=== PATIENT | female | born 1960 | race African-American/Black ===

== ENCOUNTER 2016-10-03 08:37 | Emergency (ER) | payer OTHER ==
[2016-10-03 08:51] VITALS: BP 107/75
--- NOTE | 2016-10-03 10:04 | UC ---
Cristi Shabazz Matthew, [facility] on 10/03/16 at 1000 . Hand/Wrist HPI - HPI Summary HPI Summary: Nurse's Note; R thumb swelling, painful along nailbed for a couple of weeks. Note; Vital signs stable, 7/10 pain, non-smoker, previous visit are non- contributory to current visit, allergic to sulfa drugs. In Room Note; A 56 y/o female presents to [facility] with right thumb swelling and pain since a couple of weeks ago. The pain is rated 7/10 in severity. She denies drainage from the site. The patient had similar symptoms on her toe as a child. She is right handed. The patient takes the pain medication every 4 hours for lower back pain. PMHx includes spinal stenosis and she taking Percocet, gabapentin, prozac, baclofen, ibuprofen. The patient is scheduled for surgery. - History Of Current Complaint Chief Complaint: UC Stated Complaint: SWOLLEN PAINFUL FINGER Time Seen by Provider: 10/03/16 09:35 Hx Obtained From: Patient ?: No Onset/Duration: Lasting Weeks, Still Present Severity Initially: Moderate Severity Currently: Moderate Pain Intensity: 7 Pain Scale Used: 0-10 Numeric Aggravating Factor(s): Other - Touch Alleviating: Nothing Associated Signs And Symptoms: Positive: Swelling - right thumb - Allergies/Home Medications Allergies/Adverse Reactions: Allergies Allergy/AdvReac Type Severity Reaction Status Date / Time Sulfa Antibiotics Allergy Rash Verified 10/03/16 08:43 Home Medications: Home Medications FLUoxetine CAP* [PROzac CAP*] 10 mg PO DAILY 10/03/16 [History Confirmed ] PMH/Surg Hx/FS Hx/Imm Hx Endocrine History Of: Denies: Diabetes Cardiovascular History Of: Denies: Hypertension, Pacemaker/ICD GI/ History Of: Reports: Kidney Stones - PASSED STONES 10/08 Denies: Renal Disease Cancer History Of: Denies: Breast Cancer - Surgical History Surgical History: Yes Surgery Procedure, Year, and Place: 2003 BREAST AUGMENTATION. 1992 CSECTION AND TUBAL LIGATION. GALLBLADDER REMOVED 2013 - Family History Known Family History: Positive: Hypertension, Diabetes - Social History Alcohol Use: Occasionally Alcohol Amount: 1/MONTH Substance Use Type: None Substance Use Comment - Amount & Last Used: occasionally Smoking Status (MU): Former Smoker Type: Cigarettes Amount Used/How Often: PACK/DAY Have You Smoked in the Last Year: No When Did the Patient Quit Smoking/Using Tobacco: 11/05 - Immunization History Most Recent Influenza Vaccination: fall 2015 Review of Systems Constitutional: Negative Skin: Negative Eyes: Negative ENT: Negative Respiratory: Negative Cardiovascular: Negative Gastrointestinal: Negative Genitourinary: Negative Motor: Negative Neurovascular: Negative Musculoskeletal: Edema - right thumb swelling, Myalgia - right thumb pain; lower back pain Neurological: Negative Psychological: Negative All Other Systems Reviewed And Are Negative: Yes Physical Exam Triage Information Reviewed: Yes Appearance: Well-Appearing, No Pain Distress, Well-Nourished Vital Signs: Initial Vital Signs Temp 96.6 F 10/03/16 08:46 Pulse 65 10/03/16 08:46 Resp 16 10/03/16 08:46 BP 107/75 10/03/16 08:46 Pulse Ox 98 10/03/16 08:46 Vital Signs Reviewed: Yes ENT: Positive: Hearing grossly normal. Negative: Pharyngeal erythema, Tonsillar swelling, Muffled/hoarse voice Neck: Positive: Supple, No Lymphadenopathy Respiratory: Positive: Chest non-tender, Lungs clear, Normal breath sounds, No respiratory distress Cardiovascular: Positive: RRR, No Murmur Abdomen Description: Positive: Nontender, No Organomegaly, Soft Bowel Sounds: Positive: Present Musculoskeletal: Positive: Strength Intact Neurological: Positive: Alert Psychological: Positive: Age Appropriate Behavior Skin: Positive: Other Hand/Wrist Course/Dx - Differential Dx/Diagnosis Differential Diagnosis/HQI/PQRI: Other - paronychia vs. local cellulitis Provider Diagnoses: Localized Cellulitis of the ulnar margin of the right thumb Discharge - Discharge Plan Condition: Stable Disposition: HOME Prescriptions: Cephalexin CAP* [Keflex 500 CAP*] 500 mg PO TID #21 cap MDD 3 Fluconazole [Diflucan 150 MG (NF)] 150 mg PO ONCE #1 tab MDD 1 Patient Education Materials: Cellulitis (ED) Referrals: Patrice Bauer MD [Primary Care Provider] - Additional Instructions: WE DISCUSSED: You have a small skin infection on one side of your right thumb. There was no pus to be released. Watch for swelling, pain, pus pocket, red lines. Start Keflex, 3 times a day for 7 day. Use antibiotic ointment after soaks along nail margin. Hot salt water soaks for 10 minutes 6 to 8 times a day. Recheck for any increased pain, pus, temperature, swelling. The documentation as recorded by the geoibCristi croft Matthew accurately reflects the service I personally performed and the decisions made by , Prosper Jefferson MD.
== END 2016-10-03 10:06 | disposition home or self-care (01) ==
LOC: UCEAST 08:37
DX: L03.011 Cellulitis of right finger (principal); Z88.2 Allergy status to sulfonamides; Z90.49 Acquired absence of other specified parts of digestive tract; Z87.891 Personal history of nicotine dependence
CPT/HCPCS: 99212; G0463

== ENCOUNTER 2018-05-19 16:17 | Emergency (ER) | payer OTHER ==
--- OUTSIDE RECORDS SUMMARY | 2018-05-19 16:21 | XMS REPORT ---
:1960 External Reference #:[id number] Author Organization [facility] Address [address] [place] [address] Phone [phone] Care Team Providers Name Role Phone Patrice Bauer Care Team Information Assistant Brand Manager Unavailable Patrice Bauer Primary Care Physician Unavailable Payers Type Date Identification Numbers Payment Provider Subscriber Medicaid Effective: 2013 Policy Number: [id number] [facility] Lorena Cisneroser PayID: [id number] [address] [address] [place] [address] Medicaid Expires: 2016 Policy Number: YES Medicaid [place] Lorena Mckoy PayID: [id number] [address] [facility] [place] [address] Problems Date Description Provider Status Onset: 04/17/2012 Type 2 diabetes mellitus Patrice Bauer M.D. Active Onset: 04/17/2012 Hyperlipidemia Patrice Bauer M.D. Active Onset: 04/17/2012 Low back pain Patrice Bauer M.D. Active Onset: 07/28/2012 Acute upper respiratory infection Patrice Bauer M.D. Active Onset: 10/07/2012 Disorder of skin AND/OR subcutaneous Byrdfrancisca Brown M.D. Active tissue Onset: 10/13/2012 Acute sinusitis Patrice Bauer M.D. Active Onset: 10/13/2012 Allergic urticaria Patrice Bauer M.D. Active Onset: 10/13/2012 Seborrheic dermatitis Patrice Bauer M.D. Active Onset: 12/15/2012 Anxiety state Patrice Bauer M.D. Active Onset: 02/01/2014 Arthralgia of the lower leg Patrice Bauer M.D. Active Onset: 06/27/2014 Onychomycosis Patrice Bauer M.D. Active Onset: 10/25/2014 Eruption Patrice Bauer M.D. Active Onset: 07/03/2015 Lumbar radiculopathy Patrice Bauer M.D. Active Onset: 03/26/2016 Pain in thoracic spine Patrice Bauer M.D. Active Onset: 03/26/2016 Arthralgia of the upper arm Patrice Bauer M.D. Active Onset: 06/03/2016 Female climacteric state Patrice Bauer M.D. Active Onset: 09/23/2016 Spinal stenosis of lumbar region Patrice Bauer M.D. Active Onset: 10/28/2016 Dysthymic disorder Patrice Bauer M.D. Active Onset: 11/29/2016 Chest pain Patrice Bauer M.D. Active Family History Date Family Member(s) Problem(s) Comments Father due to Homicide () Mother due to drug addict () Children 2 First Son Unremarkable First Daughter Unremarkable Siblings None Social History Type Date Description Comments Marital Status single Lives With Daughter Diet Healthy, Well Balanced ETOH Use Occasionally consumes alcohol Smoking Patient is a former smoker Daily Caffeine Some Caffeine Exercise Type/Frequency Exercises sporadically Seat Belt/Car Seat Always uses seat belt Allergies, Adverse Reactions, Alerts Date Description Reaction Status Severity Comments 10/08/2012 Sulfa active 04/17/2012 NKDA inactive 07/28/2012 Chantix inactive Depressed Medications Medication Date Status Form Strength Qnty SIG Indications Ordering Provider Note Due To needs to Patrice Giron Health Issues 2018 have a 2 [place], bedroom M.D. apartment to accomodate equipment to exercise her back. Diagnosis-c hronic low back pain Work Able to Patrice Giron Recommendation 2017 work up to [place], 20 hours M.D. per week at a sedentary job Gabapentin Capsules 300mg 120cap take 1 bid M54.16 Patrice Fisher s And 1-2 [place], caps at M.D. bedtime for pain Fluoxetine HCL 10/03/ Active Capsules 20mg 30caps 1 by mouth F41.1 Patrice Giron 2016 every day [place], for anxiety M.D. Baclofen 02/15/ Active Tablets 20mg 45tabs take one Patrice Giron 2015 tablet by [place], mouth four M.D. times a day as needed for muscle spasms Ibuprofen 06/09/ Active Tablets 800mg 60tabs 1 by mouth J06.9 Patrice Giron 2014 every 12h [place], as needed M.D. with food Multivitamins 12/15/ Active Capsules 30caps 1 by mouth Patrice Giron 2012 every day [place], M.D. Endocet 04/17/ Active Tablets 10-325mg 120tab 1 by mouth M54.5 Patrice Giron 2011 s four times [place], a day as M.D. needed M54.16 Cheratussin ac 08/14 Hx Syrup 100-10 120m 5-10 ml every 4 J06. Patrice Russ mg/5ML l hours as needed 9 [place], - M.D. 09/26 Diazepam 11/29 Hx Tablets 2mg 30ta 1-2 twice a day F41. Patrice bs as needed for 1 [place], - anxiety M.D. 12/30 Betamethasone Valerate 10/28 Hx Cream 0.1% 15gm apply twice a R21 Patrice Giron day to three [place], - times a day to M.D. 03/102017 Work Excuse 10/28 Hx unable to work M54. Patrice until rechecked 5 [place], - in 4 weeks. M.D. 03/04 Cheratussin ac 09/26 Hx Syrup 100-10 120m 1-2 teaspoon J06. Patrice Russ mg/5ML l every 4 hours as 9 [place], - needed M.D. 11/29 Gabapentin 09/23 Hx Capsules 100mg 90ca take one to M54. Patrice Giron ps three capsules 16 [place], - by mouth at M.D. 10/03 bedtime for pain /2016 Estroven Nighttime 06/03 Hx Capsules 3mg Patrice Russ [place], - M.D. 03/10 Work Excuse 06/03 Hx unable to work M54. Patrice until rechecked 5 [place], - in 4 weeks. M.D. 08/22 Fluoxetine HCL 06/03 Hx Capsules 10mg 60ca take 1-2 cap by F41. ps mouth every day 1 [place], - For Anxiety M.D. 10/03 Methylprednisolone 04/09 Hx TBPK 4mg 1Pac as directed M25. Patrice k 522 [place], - M.D. 06/03 Physical Therapy 03/26 Hx treatment and M54. evaluation low 5 [place], - back pain M.D. 05/25 Work Excuse 01/11 Hx unable to work Patrice 01/10-01/11 due to [place], - back pain M.D. 02/15 Baclofen 01/10 Hx Tablets 20mg 45ta take one tablet bs by mouth four [place], - times a day as M.D. 02/15 needed for muscle spasms Note 01/08 Hx pt was seen here today , advised Anais, - no work through Afnp-C 01/1001/10/16 Ciclopirox 07/13 Hx Solution 8% 6.6u Apply Daily To nits Affected Nails [place], - M.D. 11/23 Note Due To Health 06/14 Hx Lorena may return to work today Luis, - COMPUTER CONSULTANT 07/03 Cheratussin ac 06/09 Hx Syrup 100-10 120m 1-2 teaspoon J. mg/5ML l every 4 hours as 9 Luis, - needed COMPUTER CONSULTANT 07/03 Azithromycin 06/09 Hx Tablets 250mg 6tab 2 by mouth qd x J06. s 3d then 1 po qd 9 Luis, - x 6d COMPUTER CONSULTANT 07/03 Terbinafine HCL 12/27 Hx Tablets 250mg 20ta 1 by mouth every 782. Patrice Russ bs day For Rash 1 [place], - M.D. 11/23 Triamcinolone Acetonide 12/27 Hx Cream 0.1% 45un apply to 782. Patrice T its affected skin 1 [place], - twice a day M.D. 11/23 Ketoconazole 10/25 Hx Tablets 200mg 14ta 1 PO qd For Rash 782. Patrice T bs 1 [place], - M.D. 12/27 Ketoconazole 10/25 Hx Cream 2% 30gm apply to rash 782. Patrice T every day to 1 [place], - twice a day M.D. 12/27 Azithromycin 08/12 Hx Tablets 250mg 6tab 2 by mouth today 466. Patrice Giron s and 1 by mouth x 0 [place], - 4 days M.D. 10/25 Cheratussin ac 08/12 Hx Syrup 100-10 120m 1-2 teaspoon 466. Patrice Russ mg/5ML l every 4 hours as 0 [place], - needed M.D. 12/27 Work Note 08/12 Hx no work today Patrice Giron and tomorrow due [place], - to illness M.D. 10/25 Chantix 07/25 Hx Tablets 1mg 60ta 1 by mouth twice Patrice bs a day [place], - M.D. 06/09 Chantix Starting Month 06/27 Hx Tablets 0.5mg 53ta take as directed Patrice Giron X 11 & bs [place], - 1 mg X M.D. 07/25 Ciclopirox 06/27 Hx Solution 8% 1Bot apply daily to 110. Patrice Giron tle affected nails 1 [place], - M.D. 10/25 Meloxicam 02/01 Hx Tablets 7.5mg 30ta 1 po qd for pain Patrice Giron bs prn take with [place], - food. M.D. 07/03 Physical Therapy 10/25 Hx treatment and 724. Patrice Giron evaluation low 2 [place], - back pain M.D. 02/01 Azithromycin 08/05 Hx Tablets 250mg 6tab 2 po today and 1 461. Patrice T. s po x 4 days 8 [place], - M.D. 10/25 Betamethasone 03/29 Hx Cream 0.05% 15gm apply sparingly Patrice T. Dipropionate bid-tid to rash [place], - prn M.D. 10/25 Multivitamins 12/15 Hx Tablets 30ta 1 by mouth every Patrice T. /2012 bs day [place], - M.D. 08/12 A[place]ton-Smoothe/FS Scalp 10/13 Hx Oil 0.01% 1Bot Apply qd prn To Patrice T. Oil tle Scalp [place], - M.D. 06/20 Azithromycin 10/13 Hx Tablets 250mg 6tab 2 po today and 1 461. Patrice T. s po x [address] [facility] [place], - M.D. 12/15 Prednisone 10/07 Hx Tablets 20mg 20ta 3 tabs x 3 days, 709. Carson Cox. bs then 2 tabs x 3 9 Alba Brown - days then 1 tab 12/15 x 3 days 1/2 tab for three days Azithromycin 07/28 Hx Tablets 250mg 6tab 2 po today and 1 465. Patrice T. s po x [address] days [address] [facility], - M.DShoaib 10/07 Fluconazole 07/28 Hx Tablets 150mg 2tab 1 po for yeast 465. Patrice T. s infection. december [address] [facility], - repeat in 5-7 M.D. Medrol Dosepak 07/28 Hx Tablets 4mg 1tab as directed for 724. Patrice T. s low back 2 [place], - M.D. 07/28 Chantix Starter Pack 07/01 Hx 1PK take as directed Anais, - Afnp-C 07/28 Physical Therapy 07/01 Hx please evaluate and treat for Anais, - chronic back Afnp-C 12/15 pain exacerbation Cyclobenzaprine HCL 04/17 Hx Tablets 10mg 30ta 1 by mouth three bs times a day as Anais, - needed Afnp-C 03/26 Simvastatin 04/17 Hx Tablets 10mg 30ta 1 po qhs Patrice Shoaib Davin Wisdom M.D. 10/25 Metformin HCL ER 04/17 Hx Tablets ER 500mg 30ta one tab po qd Patrice Shoaib 24HR Davin Wisdom M.D. 03/29 Chantix 04/17 Hx Tablets 1mg 1 po bid Davin Manzo 07/28 Vitamin D Hx Capsules 1000Un 1 po qd Unknown /0000 it - 02/01 Medications Administered in Office Medication Date Status Form Strength Qnty SIG Indications Ordering Provider TB Intradermal Administered Injection Patrice T. Test 016 Alba Bauer TB Intradermal Administered Injection Merle Test 014 Shamir, NINI Immunizations CPT Code Status Date Vaccine Lot # [id number] Given 06/14/2017 Influenza Vac, Quadrivalent, Slit Virus, Im [id number] 60546 Given 07/06/2016 Influenza Vac, Quadrivalent, Slit Virus, Im [id number] Given 07/03/2015 Influenza Vac, Quadrivalent, Slit Virus, Im [id number] Given 05/30/2014 Tdap Tetanus, W Pertussis [id number] Given 05/30/2014 DO Not Use Split Influenza Virus Vaccine [id number] Vital Signs Date Vital Result Comment 04/25/2018 BP Systolic 118 mmHg BP Diastolic 70 mmHg Heart Rate 64 /min Body Temperature 97.8 F Respiratory Rate 16 /min Height 61.5 inches 5'1.50" measured 07/23/16 Weight 192.00 lb BMI (Body Mass Index) 35.7 kg/m2 12/30/2017 BP Systolic 112 mmHg BP Diastolic 68 mmHg Heart Rate 68 /min Body Temperature 97.7 F Respiratory Rate 16 /min Height 61.5 inches 5'1.50" measured 07/23/16 Weight 194.50 lb BMI (Body Mass Index) 36.2 kg/m2 09/26/2017 BP Systolic 104 mmHg BP Diastolic 60 mmHg Heart Rate 84 /min Body Temperature 98.2 F Respiratory Rate 16 /min Height 61.5 inches 5'1.50" measured 07/23/16 Weight 195.00 lb BMI (Body Mass Index) 36.2 kg/m2 07/25/2017 BP Systolic 116 mmHg BP Diastolic 66 mmHg Heart Rate 72 /min Body Temperature 97.3 F Respiratory Rate 16 /min Height 61.5 inches 5'1.50" measured 07/23/16 Weight 189.25 lb BMI (Body Mass Index) 35.2 kg/m2 03/10/2017 BP Systolic 112 mmHg BP Diastolic 74 mmHg Heart Rate 68 /min Body Temperature 98.3 F Respiratory Rate 16 /min Height 61.5 inches 5'1.50" measured 07/23/16 Weight 190.25 lb BMI (Body Mass Index) 35.4 kg/m2 02/03/2017 BP Systolic 110 mmHg BP Diastolic 70 mmHg Heart Rate 68 /min Body Temperature 98.0 F Respiratory Rate 18 /min Height 61.5 inches 5'1.50" measured 07/23/16 Weight 184.00 lb BMI (Body Mass Index) 34.2 kg/m2 01/07/2017 BP Systolic 108 mmHg BP Diastolic 64 mmHg Heart Rate 72 /min Body Temperature 97.3 F Respiratory Rate 16 /min Height 61.5 inches 5'1.50" measured 07/23/16 Weight 185.38 lb BMI (Body Mass Index) 34.5 kg/m2 11/29/2016 BP Systolic 100 mmHg BP Diastolic 60 mmHg Heart Rate 78 /min Body Temperature 97.5 F Respiratory Rate 16 /min Height 61.5 inches 5'1.50" measured 07/23/16 Weight 192.25 lb BMI (Body Mass Index) 35.7 kg/m2 10/28/2016 BP Systolic 110 mmHg BP Diastolic 60 mmHg Heart Rate 78 /min Body Temperature 98.4 F Respiratory Rate 16 /min Height 61.5 inches 5'1.50" measured 07/23/16 Weight 190.00 lb BMI (Body Mass Index) 35.3 kg/m2 10/03/2016 BP Systolic 116 mmHg BP Diastolic 68 mmHg Heart Rate 78 /min Body Temperature 97.3 F Respiratory Rate 16 /min Height 61.5 inches 5'1.50" measured 07/23/16 Weight 194.12 lb BMI (Body Mass Index) 36.1 kg/m2 09/23/2016 BP Systolic 112 mmHg BP Diastolic 68 mmHg Heart Rate 84 /min Body Temperature 97.8 F Height 61.5 inches 5'1.50" measured 11/29/16 Weight 190.25 lb BMI (Body Mass Index) 35.4 kg/m2 08/22/2016 BP Systolic 118 mmHg BP Diastolic 60 mmHg Heart Rate 60 /min Body Temperature 97.5 F Respiratory Rate 16 /min Height 61.5 inches 5'1.50" measured 07/23/16 Weight 195.00 lb BMI (Body Mass Index) 36.2 kg/m2 07/23/2016 BP Systolic 100 mmHg BP Diastolic 60 mmHg Heart Rate 84 /min Body Temperature 97.7 F Respiratory Rate 16 /min Height 61.5 inches 5'1.50" measured 07/23/16 Weight 191.25 lb BMI (Body Mass Index) 35.5 kg/m2 06/20/2016 BP Systolic 120 mmHg BP Diastolic 70 mmHg Heart Rate 68 /min Body Temperature 97.4 F Respiratory Rate 18 /min Height 62 inches 5'2" measured 03/26/16 Weight 189.38 lb BMI (Body Mass Index) 34.6 kg/m2 06/03/2016 BP Systolic 100 mmHg BP Diastolic 64 mmHg Heart Rate 84 /min Body Temperature 99.1 F Respiratory Rate 16 /min Height 62 inches 5'2" measured 03/26/16 Weight 190.00 lb BMI (Body Mass Index) 34.7 kg/m2 04/09/2016 BP Systolic 100 mmHg BP Diastolic 60 mmHg Heart Rate 72 /min Body Temperature 97.9 F Respiratory Rate 16 /min Height 62 inches 5'2" measured 03/26/16 Weight 184.12 lb BMI (Body Mass Index) 33.7 kg/m2 03/26/2016 BP Systolic 110 mmHg BP Diastolic 60 mmHg Heart Rate 84 /min Body Temperature 99.0 F Respiratory Rate 16 /min Height 62 inches 5'2" measured 03/26/16 Weight 184.12 lb BMI (Body Mass Index) 33.7 kg/m2 02/16/2016 BP Systolic 118 mmHg BP Diastolic 60 mmHg Heart Rate 68 /min Body Temperature 98.0 F Respiratory Rate 16 /min Height 62.5 inches 5'2.50" Weight 184.50 lb BMI (Body Mass Index) 33.2 kg/m2 01/09/2016 BP Systolic 120 mmHg BP Diastolic 60 mmHg Heart Rate 76 /min Body Temperature 98.4 F Respiratory Rate 16 /min Height 62.5 inches 5'2.50" Weight 190.00 lb BMI (Body Mass Index) 34.2 kg/m2 11/24/2015 BP Systolic 114 mmHg BP Diastolic 60 mmHg Heart Rate 72 /min Body Temperature 97.7 F Respiratory Rate 16 /min Height 62.5 inches 5'2.50" Weight 197.50 lb BMI (Body Mass Index) 35.5 kg/m2 07/03/2015 BP Systolic 120 mmHg BP Diastolic 70 mmHg Heart Rate 64 /min Body Temperature 97.0 F Respiratory Rate 16 /min Weight 200.00 lb 06/09/2015 BP Systolic 126 mmHg BP Diastolic 80 mmHg Heart Rate 62 /min Body Temperature 97.9 F Weight 200.00 lb 12/27/2014 BP Systolic 100 mmHg BP Diastolic 60 mmHg Heart Rate 84 /min Body Temperature 98.4 F Respiratory Rate 16 /min Weight 189.50 lb 10/25/2014 BP Systolic 118 mmHg BP Diastolic 70 mmHg Heart Rate 100 /min Respiratory Rate 18 /min Height 62.5 inches 5'2.50" Weight 191.25 lb BMI (Body Mass Index) 34.4 kg/m2 08/12/2014 BP Systolic 124 mmHg BP Diastolic 60 mmHg Heart Rate 102 /min Body Temperature 97.3 F Respiratory Rate 16 /min Height 62.5 inches 5'2.50" Weight 185.50 lb BMI (Body Mass Index) 33.4 kg/m2 06/27/2014 BP Systolic 100 mmHg BP Diastolic 60 mmHg Heart Rate 80 /min Body Temperature 98.2 F Respiratory Rate 16 /min Height 62.5 inches 5'2.50" measured Weight 188.00 lb BMI (Body Mass Index) 33.8 kg/m2 05/30/2014 BP Systolic 120 mmHg BP Diastolic 70 mmHg Heart Rate 80 /min Body Temperature 98.6 F Respiratory Rate 18 /min Height 62.5 inches 5'2.50" measured Weight 188.00 lb BMI (Body Mass Index) 33.8 kg/m2 02/01/2014 BP Systolic 102 mmHg BP Diastolic 60 mmHg Heart Rate 68 /min Body Temperature 97.8 F Respiratory Rate 16 /min Height 62.5 inches 5'2.50" measured Weight 189.00 lb BMI (Body Mass Index) 34.0 kg/m2 10/25/2013 BP Systolic 98 mmHg BP Diastolic 62 mmHg Heart Rate 92 /min Body Temperature 95.9 F Respiratory Rate 16 /min Height 62.5 inches 5'2.50" measured Weight 191.00 lb BMI (Body Mass Index) 34.4 kg/m2 03/29/2013 BP Systolic 100 mmHg BP Diastolic 68 mmHg Heart Rate 112 /min Body Temperature 98.6 F Height 62.5 inches 5'2.50" measured Weight 188.00 lb BMI (Body Mass Index) 33.8 kg/m2 12/15/2012 BP Systolic 104 mmHg BP Diastolic 60 mmHg Heart Rate 84 /min Body Temperature 97.9 F Respiratory Rate 18 /min Height 62.5 inches 5'2.50" measured Weight 183.50 lb BMI (Body Mass Index) 33.0 kg/m2 10/13/2012 BP Systolic 110 mmHg BP Diastolic 70 mmHg Heart Rate 76 /min Body Temperature 97.9 F Respiratory Rate 18 /min Height 62.5 inches 5'2.50" measured Weight 186.00 lb BMI (Body Mass Index) 33.5 kg/m2 10/08/2012 BP Systolic 118 mmHg BP Diastolic 70 mmHg Heart Rate 72 /min Body Temperature 98.0 F Respiratory Rate 18 /min O2 % BldC Oximetry 98 % Height 62.5 inches 5'2.50" measured Weight 186.00 lb BMI (Body Mass Index) 33.5 kg/m2 10/07/2012 BP Systolic 120 mmHg BP Diastolic 80 mmHg Heart Rate 82 /min Body Temperature 97.1 F O2 % BldC Oximetry 98 % Height 62.5 inches 5'2.50" measured Weight 184.00 lb BMI (Body Mass Index) 33.1 kg/m2 07/28/2012 BP Systolic 116 mmHg BP Diastolic 70 mmHg Heart Rate 90 /min Body Temperature 98.5 F Height 62.5 inches 5'2.50" measured Weight 184.00 lb BMI (Body Mass Index) 33.1 kg/m2 07/01/2012 BP Systolic 116 mmHg BP Diastolic 76 mmHg Heart Rate 90 /min Body Temperature 98.3 F Height 62.5 inches 5'2.50" measured Weight 186.00 lb BMI (Body Mass Index) 33.5 kg/m2 04/17/2012 BP Systolic 112 mmHg BP Diastolic 66 mmHg Heart Rate 72 /min Body Temperature 97.6 F Height 62.5 inches 5'2.50" measured Weight 184.00 lb BMI (Body Mass Index) 33.1 kg/m2 Results Test Date Test Result H/L Range Note Laboratory test 01/01/2018 Cytology SEE RESULT BELOW 1 finding Lipid Panel 03/26/2016 Cholesterol, Total 199 mg/dL 100-199 2 Triglycerides 158 mg/dL High 0-149 2 HDL Cholesterol 48 mg/dL >39 2, 3 VLDL Cholesterol Laith 32 mg/dL 5-40 2 LDL Cholesterol Calc 119 mg/dL High 0-99 2 Comment: TNP 2 Ua - Non Micro (a) 03/26/2016 Appearance clear Color yellow Glucose, Urine (a/CMC/CTX) neg Bilirubin neg Ketones neg SP Grav 1.025 Blood neg PH 5.5 Protein neg Urobil 0.2 Nitrite neg Leukocytes (a/[facility]) neg Laboratory test finding 03/26/2016 Hemoglobin A1c (a) 5.7 % 4.1-5.7 Sedimentation Rate 18mm CBC Electronic (a) 03/26/2016 WBC 8.3 3.6-9.6 RBC 4.76 3.90-5.70 Hemoglobin (a/CMC/CTX) 13.3 g/dL 12.1 - 17.2 Hematocrit (a/CMC/CTX) 40.5 % 36.1 - 50.3 Platelets 203 10^3/ul 150-400 Lymph% 31.7 % 17.0-48.0 Mixed% 4.7 Neutrophils % 63.6 Mean Corpuscular Vol 85 82.2-97.4 Mean Corpuscular Hemoglobin 27.8 27.6-33.3 Mean Corpuscular Hemo Concen 32.7 32.0-36.0 RDW 13.3 11.6-13.7 Mean Platelet Volume 7.7 5.5-11.0 Laboratory test finding 03/26/2016 C-Reactive Protein, Quant 1.4 mg/L 0.0 -4.9 2 Lyme, Western Blot, Serum 03/26/2016 IgG P93 Ab. Absent 2 IgG P66 Ab. Absent 2 IgG P58 Ab. Absent 2 IgG P45 Ab. Absent 2 IgG P41 Ab. Absent 2 IgG P39 Ab. Absent 2 IgG P30 Ab. Absent 2 IgG P28 Ab. Absent 2 IgG P23 Ab. Absent 2 IgG P18 Ab. Absent 2 Lyme IgG WB Interp. Negative 2, 4 IgM P41 Ab. Absent 2 IgM P39 Ab. Absent 2 IgM P23 Ab. Absent 2 Lyme IgM WB Interp. Negative 2, 5 Metabolic Panel (14), Comprehensive 03/26/2016 Glucose, Serum 97 mg/dL 65 -99 2 BUN 10 mg/dL 6-24 2 Creatinine, Serum 0.71 mg/dL 0.57-1.00 2 eGFR If NonAfricn Am 98 mL/min/1.73 >59 2 eGFR If Africn Am 112 mL/min/1.73 >59 2 BUN/Creatinine Ratio 14 9-23 2 Sodium, Serum 141 mmol/L 134-144 2 Potassium, Serum 4.4 mmol/L 3.5-5.2 2 Chloride, Serum 104 mmol/L 97-108 2 Carbon Dioxide, Total 23 mmol/L 18-29 2 Calcium, Serum 9.3 mg/dL 8.7-10.2 2 Protein, Total, Serum 7.0 g/dL 6.0-8.5 2 Albumin, Serum 4.1 g/dL 3.5-5.5 2 Globulin, Total 2.9 g/dL 1.5-4.5 2 A/G Ratio 1.4 1.1-2.5 2 Bilirubin, Total <0.2 mg/dL 0.0-1.2 2 Alkaline Phosphatase, S 83 IU/L 39-117 2 Ast (Sgot) 18 IU/L 0-40 2 Alt (SGPT) 17 IU/L 0-32 2 Comprehensive Metabolic Prof 12/12/2015 Sodium 141 mEq/L 134-149 Potassium 4.4 mEq/L 3.6-5.5 Chloride 103 mEq/L 94-112 Carbon Dioxide 26 mEq/L 21-32 Glucose 99 mg/dL 70-105 BUN 11 mg/dL 6-26 Creatinine 0.8 mg/dL 0.6-1.4 BUN/Creat Ratio 13.8 CALC 8.0-36.0 Calcium 9.1 mg/dL 8.6-10.2 Total Protein 7.0 g/dL 6.4-8.3 Albumin 4.2 g/dL 3.8-5.5 Globulin 2.8 g/dL 2.0-4.8 A/G Ratio 1.5 CALC 0.6-2.3 Alk. Phosphatase 72 U/L 30-110 Alt (SGPT) 18 U/L 7-35 Ast (Sgot) 21 U/L 5-34 Total Bilirubin 0.3 mg/dL 0.2-1.3 GFR Non- >60 ml/min/1.73m^ >=60 GFR >60 ml/min/1.73m^ >=60 Laboratory test finding 12/12/2015 Hemoglobin A1c 5.5 % 4.1-5.7 (Fma/CMC,CX) Comprehensive Metabolic 06/27/2014 Sodium 137 mEq/L 134-149 Prof Potassium 3.8 mEq/L 3.6-5.5 Chloride 103 mEq/L 94-112 Carbon Dioxide 23 mEq/L 21-32 Glucose 138 mg/dL High 70-105 6 BUN 12 mg/dL 6-26 Creatinine 0.7 mg/dL 0.6-1.4 BUN/Creat Ratio 17.1 CALC 8.0-36.0 Calcium 9.3 mg/dL 8.6-10.2 Total Protein 7.3 g/dL 6.4-8.3 Albumin 4.3 g/dL 3.8-5.5 Globulin 3.0 g/dL 2.0-4.8 A/G Ratio 1.4 CALC 0.6-2.3 Alk. Phosphatase 78 U/L 30-110 Alt (SGPT) 10 U/L 7-35 Ast (Sgot) 12 U/L 5-34 Total Bilirubin 0.3 mg/dL 0.2-1.3 Laboratory test finding 06/27/2014 Hemoglobin A1c 5.5 % 4.1-5.7 (Fma/CMC,CX) Comprehensive Metabolic 03/23/2013 Albumin 4.1 g/dL 3.8-5.5 Prof Alk. Phos. 91 U/L 30-110 Alt (SGPT) 15 U/L 7-35 Ast (Sgot) 17 U/L 5-34 BUN 11 mg/dL 6-26 Calcium 8.8 mg/dL 8.6-10.2 Chloride 102 mEq/L 94-112 Creatinine 0.7 mg/dL 0.6-1.4 Carbon Dioxide 25 mEq/L 21-32 Glucose 105 mg/dL 70-105 Sodium 138 mEq/L 134-149 Total Bilirubin 0.3 mg/dL 0.2-1.3 Total Protein 7.1 g/dL 6.3-8.1 Potassium 4.3 mEq/L 3.6-5.5 Globulin 2.9 g/dL 2.0-4.8 A/G Ratio 1.4 Calc 0.6-2.3 BUN/Creat Ratio 15.0 Calc 8.0-36.0 Lipid Profile 03/23/2013 Cholesterol 198 mg/dL 120-200 HDL 47 mg/dL 30-85 Triglycerides 98 mg/dL 30-200 HDL Risk Factor 4.2 CALC 0.0-4.4 LDL (Calculated) 131 CALC High 0-129 VLDL (Calculated) 20 mg/dL 0-50 Laboratory test finding 03/23/2013 Hemoglobin A1c 5.7 % 4.1-5.7 ([facility],CX) Laboratory test finding 07/28/2012 Hemoglobin A1c 5.7 % 4.1-5.7 ([facility],CX) Comprehensive Metabolic 04/17/2012 Albumin 4.4 g/dL 3.8-5.5 Prof Alk. Phos. 82 U/L 30-110 Alt (SGPT) 15 U/L 7-35 Ast (Sgot) 16 U/L 5-34 BUN 11 mg/dL 6-26 Calcium 9.6 mg/dL 8.6-10.2 Chloride 102 mEq/L 94-112 Creatinine 0.8 mg/dL 0.6-1.4 Carbon Dioxide 22 mEq/L 21-32 Glucose 94 mg/dL 70-105 Sodium 135 mEq/L 134-149 Total Bilirubin 0.2 mg/dL 0.2-1.3 Total Protein 7.0 g/dL 6.3-8.1 Potassium 4.3 mEq/L 3.6-5.5 Globulin 2.6 g/dL 2.0-4.8 A/G Ratio 1.7 Calc 0.6-2.2 BUN/Creat Ratio 12.7 Calc 8.0-36.0 Laboratory test finding 04/17/2012 Hemoglobin A1c ([facility],CX) 5.6 % 4.1- 5.7 1 SEE RESULT BELOW Name: LORENA MCKOY : [address]: Kellie Cisse MD Acct: [id number] Unit: [id number] AGE: 57 Location: [facility] Re01/01/18 SEX: F Status: REG REF SPEC: [id number] MICHELLE: 01/01/18-[address] [facility] [address]: Kellie Cisse MD REQ: [id number] RECD: 01/01/18 STATUS: JELLY MARI DR: Patrice Bauer MD _ ORDERED: TP IMAGE ANALYS, HPV/Thin Prep COMMENTS: [id number] Negative for Intraepithelial lesion or Malignancy A. Ectocervical/Endocervical Specimen Adequacy: Satisfactory of evaluation Transformation zone component not identified Patient Information: HPV: High risk HPV RNA testing regardless of pap results. Actual Specimen Date: 01/01/18 LMP If Unknown: 06/2017 Spec Date if unknown: 2015 Other Pertinent History: Prior Elsewhere Date Time Test Result Flag (u) Normal Range 01/01/18 1023 @ HPV RNA Negative Negative @ @ The high-risk HPV types detected by the assay include: 16, @ 18, 31, 33, 35, 39, 45, 51, 52, 56, 58, 59, 66, and 68. Signed by and Reported on: NEAL Motta(ASCP) 1034 This Pap test was evaluated with the assistance of the LudiaPrep Test Imaging System. Due to cytologic findings at the mechanical equipment sales engineer microscope, comprehensive manual rescreening by a Reimbursement Director may be required. The Pap Smear is a screening test designed to aid in the detection of premalignant and malignant conditions of the uterine cervix. It is not a diagnostic procedure and should not be used as the sole means of detecting cervical cancer. Both false- positive and false- negative reports do occur. Depending on your risk status, a Pap smear should be obtained and evaluated every 1-3 years. END OF REPORT DEPARTMENT OF PATHOLOGY, [address] [place] [address] Stalin Ramos M.D. Director [facility] # [id number] 2 2 sst 3 According to ATP-III Guidelines, HDL-C >59 mg/dL is considered a negative risk factor for CHD. 4 Positive: 5 of the following Borrelia-specific bands: 18,23,28,30,39,41,45,58, 66, and 93. Negative: No bands or banding patterns which do not meet positive criteria. 5 Note: An equivocal or positive EIA result followed by a negative Western Blot result is considered NEGATIVE. An equivocal or positive EIA result followed by a positive Western Blot is considered POSITIVE by the CDC. Positive: 2 of the following bands: 23,39 or 41 Negative: No bands or banding patterns which do not meet positive criteria. Criteria for positivity are those recommended by CDC/ASTPHLD. p23=Osp C, g26=zpbtgdgew Note: Sera from individuals with the following may cross react in the Lyme Western Blot assays: other spirochetal diseases (periodontal disease, leptospirosis, relapsing fever, yaws, and pinta); connective autoimmune (Rheumatoid Arthritis and Systemic Lupus Erythematosus and also individuals with Antinuclear Antibody); other infections (Dozier Spotted Fever; Emmett-Rojas Virus, and Cytomegalovirus). 6 RESULTS VERIFIED BY REPEAT ANALYSIS Procedures Date CPT Code Description Status Comment 11/29/2016 17612 Electrocardiogram Complete Completed 09/25/2016 Mammogram Completed 10/17/2013 Mammogram Completed 10/11/2013 Mammogram Completed 10/04/2013 Mammogram Completed 07/28/2012 15379 Finger Or Heel Stick Completed 09/25/2011 Diabetic Retinal Eye Exam Completed Dr Malone Encounters Type Date Location Provider CPT E/M Dx Office Visit 12/30/2017 8:00p Main Office Patrice Bauer M.D. 71580 M54.5 F41.1 M54.16 F34.1 Office Visit 09/26/2017 4:20p Main Office Patrice Bauer M.D. 23432 N95.1 M54.5 F41.1 Office Visit 07/25/2017 2:00p Main Office Patrice Bauer M.D. 12160 M19.041 M19.042 M79.671 M79.672 M54.5 Office Visit 03/10/2017 2:00p Main Office Patrice Bauer M.D. 81894 M54.5 M79.644 M79.671 Office Visit 02/03/2017 10:30a [facility] Office [place]anna [place], 64646 M79.644 Afnp-C M79.671 M79.672 Office Visit 01/07/2017 1:40p Main Office Patrice Bauer M.D. 22881 M54.5 F41.1 M54.16 F34.1 Office Visit 11/29/2016 2:40p Main Office Patrice Bauer M.D. 11367 M54.5 M54.16 F34.1 F41.1 R07.89 Office Visit 10/28/2016 2:20p Main Office Patrice Bauer M.D. 95467 M54.5 M54.16 F41.1 F34.1 R21 Office Visit 10/03/2016 8:00a [facility] Patrice Bauer M.D. 09173 M54.16 M54.5 F41.1 W01.198A Office Visit 09/23/2016 11:20a Main Office Patrice Bauer M.D. 25422 M54.5 M54.16 M48.06 Office Visit 08/22/2016 2:00p [facility] Patrice Bauer M.D. 96752 M54.5 M54.16 F41.1 Office Visit 07/23/2016 3:20p Main Office Patrice Bauer M.D. 51806 M54.5 M54.16 F41.1 N95.1 Office Visit 06/20/2016 8:40a [facility] Patrice Bauer M.D. 56939 M54.5 M54.16 F41.1 Office Visit 06/03/2016 2:40p Main Office Patrice Bauer M.D. 71579 M54.5 M54.16 F41.1 N95.1 Office Visit 05/08/2016 4:15p Main Office Patrice Bauer M.D. 04821 Z11.1 Office Visit 04/09/2016 1:20p Main Office Patrice Bauer M.D. 23497 M25.522 M54.5 Office Visit 03/26/2016 5:00p Main Office Patrice Bauer M.D. 59357 Z00.01 M54.5 M54.16 E11.9 M54.6 M25.522 E78.4 Office Visit 02/16/2016 4:40p Main Office Patrice Bauer M.D. 38985 M54.5 M54.16 Office Visit 01/09/2016 2:00p Main Office Alberto Qureshi 89376 M54.5 M54.16 Office Visit 11/24/2015 4:40p Main Office Patrice Bauer M.D. 41989 M54.5 M54.16 Office Visit 07/03/2015 4:40p Main Office Patrice Bauer M.D. 72711 M54.5 M54.16 E11.9 Z23 Office Visit 06/09/2015 11:00a Main Office Omaira Smith, COMPUTER CONSULTANT 68289 J06.9 Office Visit 12/27/2014 6:20p Main Office Patrice Bauer M.D. 28718 782.1 Office Visit 10/25/2014 5:40p Main Office Patrice Bauer M.D. 59127 782.1 724.2 Office Visit 08/12/2014 10:10a Main Office Patrice Bauer M.D. 13171 465.9 466.0 Office Visit 06/27/2014 11:00a Main Office Patrice Bauer M.D. 10011 724.2 110.1 250.00 Office Visit 05/30/2014 7:30p Main Office Merle Barksdale, COMMUNITY RELATIONS OFFICER 41425 V70.3 V06.1 v06.5 v04.81 v74.1 Office Visit 02/01/2014 4:00p Main Office Patrice Bauer M.D. 74923 719.46 Office Visit 10/25/2013 8:10a Main Office Patrice Bauer M.D. 69330 724.2 250.00 272.4 709.9 Office Visit 03/29/2013 1:40p Main Office Patrice Bauer M.D. 34953 250.00 272.4 724.2 461.8 300.00 Office Visit 12/15/2012 11:20a Main Office Patrice Bauer M.D. 39452 250.00 272.4 724.2 300.00 Office Visit 10/13/2012 7:00p Main Office Patrice Bauer M.D. 38285 461.8 708.0 250.00 690.18 Office Visit 10/08/2012 1:40p Main Office Carson Brown M.D. 76968 709.9 Office Visit 10/07/2012 9:10a Main Office Carson Brown M.D. 37356 709.9 Office Visit 07/28/2012 3:10p Main Office Patrice Bauer M.D. 80043 724.2 465.9 250.00 Office Visit 07/01/2012 2:30p Main Office Rosanna Manzo, Geno-Shorty 37974 724.2 305.1 Office Visit 04/17/2012 1:20p Main Office Patrice Bauer M.D. 46411 250.00 272.4 724.2 Plan of Care Future Appointment(s):05/08/2018 9:20 am - Patrice Bauer M.D. at Main Zyxoqj3004/25/2018 - Geno Qureshi-CM79.672 Pain in left footNew Xrays: Foot Complete Min 3 Views LeftFollow up:Followup:. (Follow up)AllComments:~B_~U_ Medication Management~b_~u_ Patient Understands medications she's taking? Yes No Are there Barriers to Adherence? Yes No Has the patient been asked about herbal supplements and therapies, and OTC meds? Yes No ~B_~U_Care Plan~b_~u_1. Patient has been queried about patient's goals/ preferences and functional/lifestyle goals at relevant visits. If relevant, describe: na2. Treatment goals as explained to the patient: abovefurther eval of foot swelling and pain 3. Are there barriers to meeting treatment goals? Yes No If Yes, please describe:4. Self-Management goals as described to the patient: Yes No I will let you know the x-ray results continue present rx for now
[2018-05-19 16:40] VITALS: BP 112/71
--- NOTE | 2018-05-19 17:28 | UC ---
Lower Extremity/Ankle HPI - HPI Summary HPI Summary: 58 y/o female presents to the urgent care c/o Left foot injured getting out of car today. Xrays completed today d/t patient already having left foot pain previously. - History of Current Complaint Chief Complaint: UCLowerExtremity Stated Complaint: FOOT INJURY Time Seen by Provider: 05/19/18 17:27 Hx Obtained From: Patient Onset/Duration: Sudden Onset Pain Intensity: 8 - Allergies/Home Medications Allergies/Adverse Reactions: Allergies Allergy/AdvReac Type Severity Reaction Status Date / Time Sulfa (Sulfonamide Allergy Rash Verified 05/19/18 16:40 Antibiotics) PMH/Surg Hx/FS Hx/Imm Hx - Surgical History Surgical History: Yes Surgery Procedure, Year, and Place: 2003 BREAST AUGMENTATION. 1992 CSECTION AND TUBAL LIGATION. GALLBLADDER REMOVED 2013 - Family History Known Family History: Positive: Hypertension, Diabetes - Social History Alcohol Use: Occasionally Alcohol Amount: 1/MONTH Substance Use Type: None Substance Use Comment - Amount & Last Used: occasionally Smoking Status (MU): Former Smoker Type: Cigarettes Amount Used/How Often: PACK/DAY Have You Smoked in the Last Year: No When Did the Patient Quit Smoking/Using Tobacco: 11/05 - Immunization History Most Recent Influenza Vaccination: fall 2015 Physical Exam - Summary Physical Exam Summary: Vital Signs Reviewed: Yes General : well developed, well nourished obese female w/o any apparent distress Eyes: Positive: Conjunctiva Clear - PERRLA, EOMI ENT: Positive: Normal ENT inspection, Hearing grossly normal, Pharynx normal, TMs normal Neck: Positive: Supple, Nontender, No Lymphadenopathy Respiratory: Positive: Chest non-tender, Lungs clear, Normal breath sounds, No respiratory distress Cardiovascular: Positive: RRR, No Murmur, Pulses Normal Abdomen Description: Positive: Nontender, No Organomegaly, Soft. Negative: CVA Tenderness (R), CVA Tenderness (L) Bowel Sounds: Positive: Present Musculoskeletal: Positive: Strength Intact, ROM Intact, No Edema, Left Foot/Toes : Pt is able to bear weight but ambulate with mild limping. RT foot :No surface trauma, ecchymosis, erythema, lesions, ulcers or break in skin integrity. The R foot is without obvious asymmetry or deformity when compared to the L foot. No bony step-off, No tenderness to palpation over toes, point tenderness over the dorsal side of mid foot and base of the 4th and 5th metatarsal and sole at the same level, no tenderness of hindfoot, Decrease plantar/dorsiflexion, inversion/ eversion due to pain. Distal motor and neurovascular status are intact. Neurological Exam: Normal Psychological Exam: Normal Skin Exam: Normal Triage Information Reviewed: Yes Vital Signs: Initial Vital Signs Temp 98.4 F 05/19/18 16:35 Pulse 74 05/19/18 16:35 Resp 14 05/19/18 16:35 BP 112/71 05/19/18 16:35 Pulse Ox 100 05/19/18 16:35 Lower Extremity Course/Dx - Differential Dx/Diagnosis Differential Diagnosis/HQI/PQRI: Arthritis, Contusion, Fracture (Closed), Gout, Sprain, Strain, Tendonitis Provider Diagnoses: 1- Left foot pain s/p injury. 2- Left foot sprain. 3- Osteoarthritis Discharge - Sign-Out/Discharge Documenting (check all that apply): Patient Departure - D/c home All imaging exams completed and their final reports reviewed: No Studies - Discharge Plan Condition: Stable Disposition: HOME Patient Education Materials: Foot Sprain (ED) Referrals: Patrice Bauer MD [Primary Care Provider] - 3 Days Ana Nicolas MD [Medical Doctor] - 1 Week Additional Instructions: 1-Please continue taking your pain medications as directed to alleviate pain and swelling. 2-Please apply ice, keep your foot immobilized with the Felix bandage and use the post-op shoe to avoid flexion. Avoid strenuous exercise or standing for long periods of time 3- Please f/u with your PCP or Orthopedic Dr Nicolas in 1 week if not improvement of symptoms for further evaluation and treatment. - Billing Disposition and Condition Condition: STABLE Disposition: Home
== END 2018-05-19 18:30 | disposition home or self-care (01) ==
LOC: UCEAST 16:17
DX: S93.602A Unspecified sprain of left foot, initial encounter (principal); X58.XXXA Exposure to other specified factors, initial encounter; Y93.89 Activity, other specified; Y92.9 Unspecified place or not applicable; M19.072 Primary osteoarthritis, left ankle and foot; Z88.2 Allergy status to sulfonamides; Z87.891 Personal history of nicotine dependence
CPT/HCPCS: 99211; G0463

== ENCOUNTER 2018-07-08 15:58 | Emergency (ER) | payer OTHER ==
[2018-07-08 16:10] VITALS: BP 117/76
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
== END 2018-07-08 18:00 | disposition home or self-care (01) ==
LOC: UCEAST 15:58
DX: S39.012A Strain of muscle, fascia and tendon of lower back, initial encounter (principal); V49.40XA Driver injured in collision with unspecified motor vehicles in traffic accident, initial encounter; Y92.9 Unspecified place or not applicable; Z88.1 Allergy status to other antibiotic agents; R25.2 Cramp and spasm; Z87.891 Personal history of nicotine dependence; M51.36 Other intervertebral disc degeneration, lumbar region
CPT/HCPCS: 72110; 81003; 99212; G0463

== ENCOUNTER 2018-11-06 12:03 | Emergency (ER) | payer OTHER ==
[2018-11-06 12:24] VITALS: BP 113/73
--- NOTE | 2018-11-06 13:15 | UC ---
Lower Extremity/Ankle HPI - HPI Summary HPI Summary: 58-year-old woman comes in with chief complaint of left fifth toe pain. She hit the left fifth toe yesterday on a piece of furniture. She had immediate pain. Pain has persisted. It is worse with ambulation or weightbearing or palpation. No laceration. Pain does radiate medially along the fifth metatarsal. No other injuries. - History of Current Complaint Chief Complaint: UCLowerExtremity Stated Complaint: TOE INJURY Time Seen by Provider: 11/06/18 13:00 Pain Intensity: 9 - Allergies/Home Medications Allergies/Adverse Reactions: Allergies Allergy/AdvReac Type Severity Reaction Status Date / Time Sulfa (Sulfonamide Allergy Rash Verified 11/06/18 12:24 Antibiotics) Home Medications: Home Medications Meloxicam 7.5 mg PO 11/06/18 [History] PMH/Surg Hx/FS Hx/Imm Hx Previously Healthy: Yes - Surgical History Surgical History: Yes Surgery Procedure, Year, and Place: 2003 BREAST AUGMENTATION. 1992 CSECTION AND TUBAL LIGATION. GALLBLADDER REMOVED 2013 - Family History Known Family History: Positive: Hypertension, Diabetes - Social History Alcohol Use: Occasionally Alcohol Amount: 1/MONTH Substance Use Type: None Substance Use Comment - Amount & Last Used: occasionally Smoking Status (MU): Former Smoker Type: Cigarettes Amount Used/How Often: PACK/DAY Have You Smoked in the Last Year: No When Did the Patient Quit Smoking/Using Tobacco: 11/05 - Immunization History Most Recent Influenza Vaccination: fall 2015 Review of Systems All Other Systems Reviewed And Are Negative: Yes Constitutional: Positive: Negative Skin: Positive: Negative Eyes: Positive: Negative ENT: Positive: Negative Respiratory: Positive: Negative Cardiovascular: Positive: Negative Gastrointestinal: Positive: Negative Motor: Positive: Negative Neurovascular: Positive: Negative Musculoskeletal: Positive: Other: - SEE HPI Neurological: Positive: Negative Psychological: Positive: Negative Is Patient Immunocompromised?: No Physical Exam Triage Information Reviewed: Yes Appearance: Well-Appearing, No Pain Distress, Well-Nourished Vital Signs: Initial Vital Signs Temp 98.7 F 11/06/18 12:20 Pulse 72 11/06/18 12:20 Resp 18 11/06/18 12:20 BP 113/73 11/06/18 12:20 Pulse Ox 100 11/06/18 12:20 Vital Signs Reviewed: Yes Eye Exam: Normal Eyes: Positive: Conjunctiva Clear Neck exam: Normal Neck: Positive: Supple Respiratory: Positive: No respiratory distress Musculoskeletal: Positive: Other: - LEFT 5TH TOE MILDLY SWOLLEN. TENDER TO PALPATION. NO SKIN BREAK. NORMAL SENSATION. NORMAL CAPILLARY REFILL. MILD TENDERNESS LEFT 5TH METATARSAL. Lower Extremity Course/Dx - Course Course Of Treatment: I discussed the x-ray report with the patient. Patient was given a postop shoe by nursing here in clinic and she was neurovascularly intact after placement of the postop shoe. Plan is ice elevation anti-inflammatories and follow up with orthopedics. - Differential Dx/Diagnosis Provider Diagnosis: Fracture of fifth toe, left, closed Discharge - Sign-Out/Discharge Documenting (check all that apply): Patient Departure All imaging exams completed and their final reports reviewed: Yes - Discharge Plan Condition: Stable Disposition: HOME Patient Education Materials: Toe Fracture (ED) Referrals: Patrice Bauer MD [Primary Care Provider] - Reinaldo Falcon MD [Medical Doctor] - Additional Instructions: FOLLOW UP WITH ORTHOPEDICS. GET RECHECKED FOR ANY WORSENING OF YOUR CONDITION OR QUESTIONS OR CONCERNS. - Billing Disposition and Condition Condition: STABLE Disposition: Home
== END 2018-11-06 13:39 | disposition home or self-care (01) ==
LOC: UCEAST 12:03
DX: S92.351A Displaced fracture of fifth metatarsal bone, right foot, initial encounter for closed fracture (principal); Z87.891 Personal history of nicotine dependence; Z88.2 Allergy status to sulfonamides; W22.8XXA Striking against or struck by other objects, initial encounter; Y92.9 Unspecified place or not applicable
CPT/HCPCS: 99212; G0463

== ENCOUNTER 2019-08-04 16:45 | Emergency (ER) | payer OTHER ==
[2019-08-04 16:51] VITALS: BP 160/86
--- NOTE | 2019-08-04 17:13 | ED ---
Upper Extremity Pain - HPI Summary HPI Summary: The patient is a 59 y/o F presenting to [facility] with a chief complaint of pain in the bilateral dorsal thumbs chronically with worsening over the past few days. She reports that she receives hand injections frequently for osteoarthritis and carpal tunnel, but she hasnt gone in a few months. Now the pain has been increasing near the snuff box regions and into the wrists despite using Gabapentin and Ibuprofen. She also has wrist guards, but she cant find the one for the right hand, so she has only been using the left guard over the last few days. She has called Dr. Nicolas, who usually administers the Cortisone shots, but she is unable to get an appointment until 08/26/19. Currently her pain is rated 7/10 in severity, which is aggravated with position. She endorses mild weakness in the hands with gripping as well as intermittent numbness in the fingers on both hands. Former smoker, no EtOH, marijuana use. Medications reviewed. Allergies noted. - History of Current Complaint Chief Complaint: EDExtremityUpper Stated Complaint: PAIN IN BOTH THUMBS PER PT Time Seen by Provider: 08/04/19 17:05 Hx Obtained From: Patient Mechanism Of Injury: Other - chronic pain Onset/Duration: Started Days Ago, Still Present Timing: Constant, Lasting Days Severity Initially: Mild Severity Currently: Moderate Pain Location: Wrist - bilateral, Hand - bilateral dorsal thumbs Character: Aching Aggravating Factor(s): Other - position Alleviating Factor(s): Rest Associated Signs & Symptoms: Positive: Weakness - mild in both hands with gripping, Numbness/Tingling - fingers on both hands intermittently - Allergies/Home Medications Allergies/Adverse Reactions: Allergies Allergy/AdvReac Type Severity Reaction Status Date / Time Sulfa (Sulfonamide Allergy Rash Verified 08/04/19 16:51 Antibiotics) PMH/Surg Hx/FS Hx/Imm Hx Endocrine/Hematology History: Denies: Hx Diabetes, Hx Thyroid Disease Cardiovascular History: Denies: Hx Hypertension, Hx Pacemaker/ICD Respiratory History: Denies: Hx Asthma, Hx Chronic Obstructive Pulmonary Disease (COPD) GI History: Denies: Hx Ulcer History: Reports: Hx Kidney Stones - PASSED STONES 10/08 Denies: Hx Renal Disease Musculoskeletal History: Reports: Hx Arthritis - BACK,KNEES ON PERCOCET Sensory History: Denies: Hx Cataracts, Hx Contacts or Glasses, Hx Hearing Aid Opthamlomology History: Denies: Hx Cataracts, Hx Contacts or Glasses Neurological History: Reports: Other Neuro Impairments/Disorders - PAIN CLINIC PATIENT Psychiatric History: Reports: Hx Anxiety Denies: Hx Panic Disorder - Cancer History Hx Chemotherapy: No Hx Radiation Therapy: No - Surgical History Surgical History: Yes Surgery Procedure, Year, and Place: 2003 BREAST REDUCTION. 1992 CSECTION AND TUBAL LIGATION. GALLBLADDER REMOVED 2013 Hx Anesthesia Reactions: No Infectious Disease History: No Infectious Disease History: Denies: Hx Hepatitis, Hx Human Immunodeficiency Virus (HIV), Traveled Outside the [place] in Last 30 Days - Family History Known Family History: Positive: Hypertension, Diabetes - Social History Alcohol Use: Occasionally Alcohol Amount: 1/MONTH Hx Substance Use: Yes Substance Use Type: Reports: Marijuana Substance Use Comment - Amount & Last Used: occasionally Hx Tobacco Use: Yes Smoking Status (MU): Former Smoker Type: Cigarettes Amount Used/How Often: PACK/DAY Have You Smoked in the Last Year: No Review of Systems Positive: Arthralgia - bilateral dorsal proximal thumbs Positive: Weakness - midl in hands with gripping, Numbness - fingers on bilateral hands All Other Systems Reviewed And Are Negative: Yes Physical Exam - Summary Physical Exam Summary: Constitutional: Well-developed, Well-nourished, Alert. (-) Distressed Skin: Warm, Dry HENT: Normocephalic; Atraumatic Eyes: Conjunctiva normal Neck: Musculoskeletal ROM normal neck. (-) JVD, (-) Stridor, (-) Tracheal deviation Cardio: Rhythm regular, rate normal, Heart sounds normal; Intact distal pulses; Radial pulses are 2+ and symmetric. (-) Murmur Pulmonary/Chest wall: Effort normal. (-) Respiratory distress, (-) Wheezes, (-) Rales Abd: Soft, (-) tenderness, (-) Distension, (-) Guarding, (-) Rebound Musculoskeletal: Tenderness on MCP joint proximal to thumb, No deformity, No ertythema, No warmth, No swelling. (-) Edema Lymph: (-) Cervical adenopathy Neuro: Alert, Oriented x3 Psych: Mood and affect Normal Triage Information Reviewed: Yes Vital Signs On Initial Exam: Initial Vitals Temp Pulse Resp BP Pulse Ox 98.0 F 71 16 160/86 100 08/04/19 16:48 08/04/19 16:48 08/04/19 16:48 08/04/19 16:48 08/04/19 16:48 Vital Signs Reviewed: Yes Procedures - Sedation Patient Received Moderate/Deep Sedation with Procedure: No Diagnostics - Vital Signs Vital Signs Temp Pulse Resp BP Pulse Ox 08/04/19 16:48 98.0 F 71 16 160/86 100 - Laboratory Lab Statement: Any lab studies that have been ordered have been reviewed, and results considered in the medical decision making process. Course/Dx - Course Course Of Treatment: Patient is here with chronic bilateral thumb pain. Patient came to the ED to get cortisone injections but was informed we cannot do that here. Patient has no red flag symptoms. Patient's symptoms are consistent with carpal tunnel lashes numbness in her thumb through middle finger bilaterally periodically. Patient was given a right wrist splint as she did not have one at home. Patient is encouraged to wear bilateral wrist splints at night. - Diagnoses Provider Diagnoses: Osteoarthritis of thumb, Carpal tunnel syndrome Discharge ED - Sign-Out/Discharge Documenting (check all that apply): Patient Departure - Patient will be discharged home. - Discharge Plan Condition: Stable Disposition: HOME Patient Education Materials: Osteoarthritis (ED) Referrals: Ana Nicolas MD [Medical Doctor] - 3 Days Patrice Bauer MD [Primary Care Provider] - 3 Days Additional Instructions: Call Dr. Nicolas tomorrow as you have planned to see if you can schedule your appointment sooner. Continue your pain management strategy. Wear both wrist guards daily until you see Dr. Nicolas. - Billing Disposition and Condition Condition: STABLE Disposition: Home - Attestation Statements Document Initiated by Christ: Yes Documenting Scribe: Taylor Huff Provider For Whom Christ is Documenting (Include Credential): Dr. Alberto Sebastian MD Scribe Attestation: I, Taylor Huff scribed for Dr. Alberto Sebastian MD on 08/04/19 at 1906. Scribe Documentation Reviewed: Yes Provider Attestation: The documentation as recorded by the Taylor luther accurately reflects the service I personally performed and the decisions made by me, Dr. Alberto Sebastian MD Status of Scribe Document: Viewed
== END 2019-08-04 17:25 | disposition home or self-care (01) ==
LOC: ED 16:45
DX: G56.00 Carpal tunnel syndrome, unspecified upper limb (principal); M79.645 Pain in left finger(s); M79.644 Pain in right finger(s); M19.049 Primary osteoarthritis, unspecified hand; Z79.899 Other long term (current) drug therapy; Z87.891 Personal history of nicotine dependence; Z87.442 Personal history of urinary calculi
CPT/HCPCS: 99282

== ENCOUNTER 2019-09-28 06:47 | Day surgery (SDC) | payer OTHER ==
--- NOTE | 2019-09-23 09:07 | HP ---
PREOPERATIVE HISTORY AND PHYSICAL EXAM: DATE OF SURGERY/ADMISSION: 09/28/19 DATE OF OFFICE VISIT/ENCOUNTER: 09/22/19 ATTENDING SURGEON: Ana Osorio MD (Roach) * (DICTATED BY GARLAND RED) PROCEDURE: Carpometacarpal joint arthroplasty, trigger release right thumb. HISTORY OF PRESENT ILLNESS: This is a 59-year-old female who has had pain at the base of her right thumb ongoing for over a year. She has been diagnosed with carpometacarpal joint arthritis. She has received cortisone injections in the past that had been helpful, but pain persists and the last cortisone injection she received did not last nearly as long as the previous one. She is also complaining of triggering in the right thumb, this has been ongoing for a couple of months now. Her thumb is very stiff in the morning, she has trouble fully flexing it. She has a trigger thumb and would like to have surgery to have the trigger thumb released and also the CMC arthroplasty for the arthritis at the base of her thumb. She is followed by Dr. Bauer for back pain and is prescribed Endocet, which she uses on a regular basis. PAST MEDICAL HISTORY: 1. Chronic back pain. 2. Seasonal allergies. 3. Anxiety/depression. PAST SURGICAL HISTORY: 1. . 2. Breast reduction. 3. Cholecystectomy. MEDICATIONS: 1. Endocet 10/325 one tab 3 times a day as needed for pain. 2. Fluoxetine HCL 20 mg daily. 3. Gabapentin 100 mg 1 tab 2 to 3 times a day as needed. 4. Ibuprofen 800 mg 3 times a day as needed. ALLERGIES: SULFA ANTIBIOTICS cause hives. FAMILY MEDICAL HISTORY: Diabetes and hypertension. 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 She is a former smoker, she quit 5 years ago. Prior to that , she smoked a pack per day for 35 years. She smokes marijuana on occasion and drinks alcohol on occasion. REVIEW OF SYSTEMS: Negative for general, cephalic, cardiovascular, respiratory , GI, , other musculoskeletal, integumentary, endocrine, neurologic, and hematologic symptoms. Infectious Disease: Negative for history of MRSA, hepatitis C, HIV. PHYSICAL EXAMINATION GENERAL: Well-developed, well-nourished 59-year-old female, in no acute distress. VITAL SIGNS: Height 5 feet 2 inches, weight 190 pounds, pulse rate 74, blood pressure 132/82. HEENT: Normocephalic and atraumatic. Pupils are equal, round, and reactive to light and accommodation. Throat is clear. NECK: Supple. No palpable lymph nodes. PULMONARY: Lungs are clear to auscultation bilaterally. No wheezes, rales, or rhonchi. CARDIOVASCULAR: Regular rate and rhythm. S1 and S2. No murmurs, rubs, or gallops. No edema. ABDOMEN: Positive bowel sounds. Soft and nontender. MUSCULOSKELETAL: On inspection of her right hand, there is no visible swelling. Tenderness to palpation at the base of the thumb, at the carpometacarpal joint as well as at the A1 chester of the thumb. She has increased pain when she tries to flex her thumb and also with full abduction. There is a prominence of her CMC joint. Positive grind test. Negative Ranjan test. NEUROLOGIC: Alert and oriented x3. Cranial nerves II through XII are intact. Sensation is intact to light touch. IMAGING STUDIES: X-rays, AP, lateral, and oblique, of the right thumb show [id number] degenerative arthritis at the CMC joint. IMPRESSION: Right thumb carpometacarpal joint arthritis and trigger thumb. PLAN: The patient is scheduled to undergo a CMC joint arthroplasty, trigger release right thumb with Dr. Osorio on 09/28/19. She will return to the office 10 days postop for followup and suture removal. She will use pain medications as prescribed by Dr. Bauer for postoperative pain management. GARLAND RED [id number]/[facility] #: [id number] LAURA
[~2019-09-28 06:47] MED LIST: Buffered Lidocaine 1% SYRIN* 1 ML/SYRINGE INTRADERM ONE; Famotidine IV* 10 MG/ML 2 ML (20 mg) IV ONE; Famotidine IV* 10 MG/ML 2 ML (20 mg) ONE; Lactated Ringers 1000 ML Bag* 1,000 ML IV SCH
[2019-09-28] MEDS ORDERED: ceFAZolin 2 GM PREMIX in ORs 2 GM/50 ML BAG ONE (06:53)
[2019-09-28] MEDS ORDERED: Lidocaine 1% INJ* 10 MG/ML 30 ML SDV ONE (07:17)
[2019-09-28] MEDS ORDERED: Midazolam* 1 MG/ML 2 ML VIAL (2 MG) ONE (08:03)
[2019-09-28] MEDS ORDERED: fentaNYL* 50 MCG/ML 2 ML VIAL (100 MCG VIAL) ONE ×3 (08:03→10:23)
[2019-09-28] MEDS ORDERED: Bupivacaine 0.5% SDV PF* 30ML VIAL ONE (08:29)
[2019-09-28] MEDS ORDERED: methylPREDNISolone ACETATE 80* 80 MG/ML 1 ML VIAL ONE (08:29)
[2019-09-28] MEDS ORDERED: Ondansetron INJ* 2 MG/ML VIAL ONE (08:35)
[2019-09-28] MEDS ORDERED: Dexamethasone IV* 4 MG/ML 1 ML (4 MG) ONE (08:35)
[2019-09-28] MEDS ORDERED: Propofol* 10 MG/ML 20 ML BTL ONE (08:35)
[2019-09-28] MEDS ORDERED: Ketorolac INJ* 30 MG/ML 1 ML VIAL ONE (08:35)
[2019-09-28] MEDS ORDERED: Ondansetron INJ* 2 MG/ML VIAL IV PRN (09:14)
[2019-09-28] MEDS ORDERED: HYDROcodone/ACETAMIN 5-325 MG* 1 TAB PO PRN (09:14)
[2019-09-28] MEDS ORDERED: DiMENhydriNATE IV* 50 MG/ML VIAL IV PUSH PRN (09:14)
[2019-09-28] MEDS ORDERED: fentaNYL* 50 MCG/ML 2 ML VIAL (100 MCG VIAL) IV PRN (09:14)
[2019-09-28] MEDS ORDERED: Acetaminophen TAB* 325 MG PO PRN (09:14)
[2019-09-28] MEDS ORDERED: Naloxone* 0.4 MG/ML 1 ML VIAL IV PRN (09:14)
[2019-09-28] MEDS ORDERED: HYDROcodone/ACETAMIN 5-325 MG* 1 TAB ONE (10:07)
[2019-09-28 11:23] VITALS: BP 139/89
--- NOTE | 2019-09-28 14:31 | OP ---
DATE OF OPERATION: 09/28/19 - [facility] DATE OF : 64 SURGEON: Ana Osorio MD GREEN TIRE INSPECTOR: GARLAND Naranjo ANESTHESIA: General. PRE-OP DIAGNOSES: Right trigger thumb and right thumb carpometacarpal arthritis. POST-OP DIAGNOSES: Right trigger thumb and right thumb carpometacarpal arthritis. OPERATIVE PROCEDURE: Right trigger thumb release and right thumb carpometacarpal arthroplasty. INDICATIONS FOR PROCEDURE: Antonette is a 59-year-old female who has triggering and locking of her right thumb as well as painful arthritis of the base of the thumb. She presents for trigger thumb release and CMC arthroplasty of the right thumb. ESTIMATED BLOOD LOSS: Zero. TOURNIQUET TIME: About 45 minutes. DESCRIPTION OF PROCEDURE: The patient was brought to the operating room and was given a general anesthetic and placed in the supine position on the operating table with tourniquet around her right upper arm. The skin of her right upper extremity was prepped and draped in the usual sterile fashion. The upper extremity was exsanguinated and the tourniquet elevated to 250 mmHg. A transverse incision was made centered over the A1 chester of the right thumb. We dissected bluntly through the subcutaneous tissue and the digital neurovascular bundles were retracted by the recruitment assistant, Tete Ryan, whose assistance was essential for safe completion of the case. The A1 chester was incised longitudinally, completely releasing the flexor tendon, which was in good condition. The wound was irrigated and the skin edges reapproximated with 4-0 nylon suture. Next, a curvilinear incision was made centered at the thumb CMC joint on the dorsal radial aspect of the thumb. We dissected through the subcutaneous tissue down to the CMC joint capsule. Branches of the radial sensory nerve were located and then retracted by the recruitment assistant, Tete Ryan. The EPL tendon was retracted ulnarly. The radial artery was carefully dissected off of the CMC joint capsule and also retracted by the recruitment assistant. A distally based U-shaped flap was created at the thumb CMC joint. This was raised off of the trapezium. Trapezium was then removed in its entirety in piecemeal fashion with a rongeur. The wound was copiously irrigated with saline. The CMC joint capsule was then secured to the FCR tendon in the floor of the wound and this gave the thumb metacarpal a nice abduction position. The remainder of the CMC joint capsule was closed with 4-0 nylon suture and then the skin edges were reapproximated with 4-0 nylon suture. The wound was dressed with Xeroform, 4x4, Webril, and a thumb spica brace holding the thumb metacarpal in abduction. The patient was awakened from general anesthesia and brought to the recovery room in good condition. [id number]/[facility] #: [id number] MTDD
== END 2019-09-28 11:50 | disposition home or self-care (01) ==
LOC: OREAST 06:47
PROVIDERS: ATTEND Orthopaedic Surgery
DX: M18.11 Unilateral primary osteoarthritis of first carpometacarpal joint, right hand (principal); M65.311 Trigger thumb, right thumb; Z87.891 Personal history of nicotine dependence; F41.8 Other specified anxiety disorders; M54.9 Dorsalgia, unspecified; J30.2 Other seasonal allergic rhinitis; Z88.1 Allergy status to other antibiotic agents
CPT/HCPCS: J0690; J1040; J1100; J1885; J2250; J2405; J2704; J3010; J3490